=== PATIENT | female | born 1980 | race Caucasian/White ===

== ENCOUNTER 2017-03-10 06:58 | Emergency (ER) | payer OTHER ==
[2017-03-10 07:09] VITALS: O2SAT 99
[2017-03-10] MEDS ORDERED: DECADRON 10MG INJ. IM ONE (07:24)
--- NOTE | 2017-03-10 07:24 | ERPHSYRPT ---
- History of Present Illness Time Seen by Provider: 03/10/17 07:09 Source: patient Exam Limitations: no limitations Physician History: The patient is a 36-year-old morbidly obese female complaining of exacerbation of her chronic back pain for the past 3 days. She woke up [place] morning with the left side of her back hurting with some pain also in her left hip. She tried taking naproxen 500 mg 2 tablets every 4 hours without relief. She also tried stretching. Icy hot topical medicine did help briefly. She denies bowel or bladder problems. She denies numbness or tingling. She denies trauma. She has a past medical history of chronic back pain, morbid obesity, and migraine headaches. Timing/Duration: day(s) (3) Method of Injury: unknown Quality: aching Back Pain Location: T-spine, lumbar spine, paraspinous muscles Back Pain Radiation: buttocks Severity of Pain-Max: severe Severity of Pain-Current: severe Modifying Factors: Improves With: cold therapy, pain medication Associated Symptoms: denies symptoms Previous symptoms: same symptoms as today Allergies/Adverse Reactions: No Known Drug Allergies Allergy (Verified 03/10/17 07:09) Home Medications: Bupropion HCl [Wellbutrin Sr] 150 mg PO DAILY 03/10/17 [History] Gabapentin 300 mg PO HS 03/10/17 [History] Naproxen 500 mg [Naprosyn 500 MG] 500 mg PO BID 03/10/17 [History] Hx Tetanus, Diphtheria Vaccination/Date Given: Yes Hx Influenza Vaccination/Date Given: Yes (2013) Hx Pneumococcal Vaccination/Date Given: No - Review of Systems Constitutional: No Fever, No Chills Eyes: No Symptoms Ears, Nose, & Throat: No Symptoms Respiratory: No Cough, No Dyspnea Cardiac: No Chest Pain, No Edema, No Syncope Abdominal/Gastrointestinal: No Abdominal Pain, No Nausea, No Vomiting, No Diarrhea Genitourinary Symptoms: No Dysuria Musculoskeletal: Back Pain Skin: No Rash Neurological: No Dizziness, No Focal Weakness, No Sensory Changes Psychological: No Symptoms Endocrine: No Symptoms Hematologic/Lymphatic: No Symptoms Immunological/Allergic: No Symptoms All Other Systems: Reviewed and Negative - Past Medical History Pertinent Past Medical History: Yes Other Medical History: REPORTS BEING TOLD SHE HAD HTN-GIVEN RX-DIDN'T TAKE THEM BEFORE VISIT AND PACU NURSE TOOK HER OFF MEDS-B/P WAS ALWAYS OK AFTER THAT - Past Surgical History Past Surgical History: No - Social History Smoking Status: Current every day smoker How long have you smoked: YRS Exposure to second hand smoke: Yes Drug Use: none Patient Lives Alone: No - Physical Exam General Appearance: moderate distress Eye Exam: PERRL/EOMI, eyes nml inspection Ears, Nose, Throat Exam: normal ENT inspection Neck Exam: normal inspection, non-tender, supple, full range of motion, No meningismus, No midline tenderness Respiratory Exam: normal breath sounds, lungs clear, No respiratory distress Cardiovascular Exam: regular rate/rhythm, normal heart sounds Gastrointestinal Exam: soft, No tenderness, No mass Pelvic Exam: not done Rectal Exam: not done Back Exam: muscle spasm (left paraspinous) Extremity Exam: normal inspection, normal range of motion, No calf tenderness, No pedal edema Neurologic Exam: alert, oriented x 3, cooperative, 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 You were given Decadron 10 mg IM and Flexeril 5 mg in the ER. Take 5-10 mg of Flexeril every 8 hours as needed for spasm and pain. Apply ice to the area as needed. Continue to take the naproxen at 500 mg twice a day. Follow-up as needed. Prescriptions: Cyclobenzaprine HCl [Flexeril] 5 mg PO Q8H PRN PRN #10 tablet PRN Reason: Pain
[2017-03-10] MEDS ORDERED: DECADRON 10MG INJ. ONE (07:28)
[2017-03-10] MEDS ORDERED: Cyclobenzaprine 10 MG PO ONE (07:29)
[2017-03-10] MEDS ORDERED: Cyclobenzaprine 10 MG ONE (07:37)
[2017-03-10 08:12] VITALS: BP 124/69; PULSE 78
== END 2017-03-10 08:12 | disposition home or self-care (01) ==
LOC: ED 06:58
DX: M62.830 Muscle spasm of back (principal)
CPT/HCPCS: 96372; 99284; J1100; A9270-GY

== ENCOUNTER 2017-11-20 17:37 | Emergency (ER) | payer OTHER ==
[2017-11-20 17:48] VITALS: BP 141/66; PULSE 88; O2SAT 98
[2017-11-20] MEDS ORDERED: ULTRAM 50 MG PO ONE (18:10)
[2017-11-20] MEDS ORDERED: AMOXIL 500 MG PO ONE (18:10)
[2017-11-20] MEDS ORDERED: ULTRAM 50 MG ONE (18:13)
[2017-11-20] MEDS ORDERED: AMOXIL 500 MG ONE (18:14)
--- NOTE | 2017-11-20 18:17 | ERPHSYRPT ---
- History of Present Illness Time Seen by Provider: 11/20/17 18:09 Source: patient Exam Limitations: no limitations Patient Subjective Stated Complaint: PT states "I have pain in my front teeth, I have a dental appointment on saturday but they told me if I feel bad to come to the emergency department." Triage Nursing Assessment: Pt alert and oriented X 3, skin pwd. Pt ambulates with an upright steady gait, able to speak in clear full sentences. pt front two teeth are brown in color and half ground away, pt has foul breath and several other teeth with dental carries. Physician History: Pt is c/o pain in her upper front teeth since yesterday. She denies injury, no severe headaches, vomiting, other complaints, she called dentist and has appointment in 2 days. Timing/Duration: gradual onset Severity: severe ENT Location: dental Prearrival Treatment: no prearrival treatment Modifying Factors: Improves With: nothing Associated Symptoms: denies symptoms Allergies/Adverse Reactions: No Known Drug Allergies Allergy (Verified 03/10/17 07:09) Home Medications: Gabapentin 300 mg PO HS 03/10/17 [History] Naproxen 500 mg [Naprosyn 500 MG] 500 mg PO BID 03/10/17 [History] buPROPion HCl [Wellbutrin Sr] 150 mg PO DAILY 03/10/17 [History] Hx Tetanus, Diphtheria Vaccination/Date Given: Yes Hx Influenza Vaccination/Date Given: No Hx Pneumococcal Vaccination/Date Given: No Immunizations Up to Date: Yes - Review of Systems Constitutional: No Symptoms Ears, Nose, & Throat: Mouth Pain, Other (toothache), No Throat Swelling, No Hoarse All Other Systems: Reviewed and Negative - Past Medical History Pertinent Past Medical History: Yes Neurological History: No Pertinent History Cardiac History: No Pertinent History Respiratory History: No Pertinent History Endocrine Medical History: No Pertinent History Musculoskeletal History: Arthritis Psycho-Social History: Depression Other Medical History: REPORTS BEING TOLD SHE HAD HTN-GIVEN RX-DIDN'T TAKE THEM BEFORE VISIT AND SO[employer] S[employer] WORKER TOOK HER OFF MEDS-B/P WAS ALWAYS OK AFTER THAT - Past Surgical History Past Surgical History: No - Social History Smoking Status: Current every day smoker How long have you smoked: 21 years Exposure to second hand smoke: Yes Drug Use: none Patient Lives Alone: No - Female History Hx Last Menstrual Period: iud, not normal Hx Now: No - Nursing Vital Signs Nursing Vital Signs: Initial Vital Signs Temperature 99.8 F 11/20/17 17:42 Pulse Rate 88 11/20/17 17:42 Respiratory Rate 18 11/20/17 17:42 Blood Pressure 141/66 11/20/17 17:42 O2 Sat by Pulse Oximetry 98 11/20/17 17:42 Pain Scale Pain Intensity 6 - Physical Exam General Appearance: no apparent distress Eye Exam: bilateral eye: PERRL, EOMI Nasal Exam: normal inspection Throat Exam: normal, No voice changes (upper front teeth: severely decayed, no severe gum swelling, redness or purulent discharge.) Neck Exam: normal inspection, non-tender, supple, trachea midline, No JVD, No lymphadenopathy (R), No lymphadenopathy (L) Cardiovascular/Respiratory Exam: chest non-tender, normal breath sounds, regular rate/rhythm, heart sounds normal, No no JVD Abdominal Exam: non-tender, soft Neurologic Exam: alert, oriented x 3 Skin Exam: normal color, warm, dry, No rash SpO2 Interpretation: normal SpO2: 98 Oxygen Delivery: Room Air - Course Nursing assessment & vital signs reviewed: Yes Ordered Tests: Medication Summary Discontinued Medications Generic Name Dose Route Start Last Admin Trade Name Freq PRN Reason Stop Dose Admin Amoxicillin 500 mg 11/20/17 18:10 Amoxil 500 Mg PO 11/20/17 18:11 STAT ONE Tramadol HCl 50 mg 11/20/17 18:10 Ultram 50 Mg PO 11/20/17 18:11 STAT ONE - Progress Progress: improved Progress Note: 11/20/17 18:16 Pt has been stable, afebrile, no drooling or muffled voice. I instructed her to keep her dental appointment, she was given 1 tab. Ultram and 500mg Amoxicillin and discharged, to return if severe swelling, difficulty swallowing, high fever > 103F, vomiting> Counseled pt/family regarding: diagnosis - Departure Time of Disposition: 18:17 Departure Disposition: Home Clinical Impression: Pain, dental Condition: Stable Critical Care Time: No Referrals: ELVIRA TORRES [Primary Care Provider] - Instructions: Tooth Decay, Adult (DC) Additional Instructions: Follow up with dentist as scheduled! Return if severe swelling, vomiting, difficulty swallowing, high fever> 103 F! Prescriptions: Amoxicillin 500 mg PO TID 10 Days #30 capsule
== END 2017-11-20 18:30 | disposition home or self-care (01) ==
LOC: ED 17:37
DX: K08.89 Other specified disorders of teeth and supporting structures (principal)
CPT/HCPCS: 99283; A9270-GY